=== PATIENT | male | born 1960 | race Asian ===

== ENCOUNTER 2016-06-23 02:41 | Emergency (ER) | payer OTHER ==
[~2016-06-23] VITALS: Ht 185.4 cm; Wt 77.1 kg
[~2016-06-23 02:41] MED LIST: HYDROCHLOROT50 MG PO; LISI20TA11 PO; LORTAB 5-325 MG1 TAB PO; METFORMIN ER1000 MG PO; METO25TA4 PO
[2016-06-23 04:06] LABS: PLATELET COUNT 101 K/uL (142-355)
[2016-06-23 04:14] LABS: POTASSIUM 2.7 mmol/L (3.6-5.2)
[2016-06-23 06:46] VITALS: BP 108/71; TEMP 97.8
== END 2016-06-23 06:54 | disposition home or self-care (01) ==
LOC: ED 02:41
DX: T78.3XXA Angioneurotic edema, initial encounter (principal); I10 Essential (primary) hypertension; R80.8 Other proteinuria
CPT/HCPCS: 36415; 80053; 81000; 85027; 96374; 96375; 99284; J1200; J3490

== ENCOUNTER 2016-06-25 10:34 | Emergency (ER) | payer BC ==
[~2016-06-25] VITALS: Ht 185.4 cm; Wt 77.1 kg
[2016-06-25] MEDS ORDERED: METF500T PO (10:51)
[2016-06-25] MEDS ORDERED: LABETALOL100 MG OR (10:52)
[2016-06-25 11:57] LABS: POTASSIUM 3.7 mmol/L (3.6-5.2)
[2016-06-25 12:07] LABS: PLATELET COUNT 76 K/uL (142-355)
[2016-06-25 13:00] VITALS: BP 138/85; TEMP 97.9
== END 2016-06-25 13:01 | disposition home or self-care (01) ==
LOC: ED 10:34
PROVIDERS: Emergency Medicine
DX: I10 Essential (primary) hypertension (principal); K85.90 Acute pancreatitis without necrosis or infection, unspecified; D69.6 Thrombocytopenia, unspecified
CPT/HCPCS: 36415; 80053; 83690; 85027; 99282

== ENCOUNTER 2017-04-19 08:50 | Outpatient (CLI) | payer BC ==
[~2017-04-19 08:50] MED LIST changes: +LABETALOL100 MG OR; +METF500T PO
== END 2017-04-19 10:00 | disposition home or self-care (01) ==
LOC: MRI 08:50
DX: Z85.528 Personal history of other malignant neoplasm of kidney (principal)

== ENCOUNTER 2020-05-29 08:52 | Outpatient (CLI) | payer OTHER | END 2020-05-29 22:10 | disposition home or self-care (01) | LOC: MRI 08:52 | PROVIDERS: ATTEND Specialist | DX: M54.9 Dorsalgia, unspecified (principal); M51.36 Other intervertebral disc degeneration, lumbar region ==

== ENCOUNTER 2021-02-28 08:55 | Outpatient (CLI) | payer OTHER | END 2021-02-28 19:16 | disposition home or self-care (01) | LOC: US 08:55 | PROVIDERS: ATTEND Nurse Practitioner Family | DX: D64.9 Anemia, unspecified (principal); E11.9 Type 2 diabetes mellitus without complications; K21.9 Gastro-esophageal reflux disease without esophagitis; Z85.528 Personal history of other malignant neoplasm of kidney; Z87.19 Personal history of other diseases of the digestive system; E78.5 Hyperlipidemia, unspecified; I10 Essential (primary) hypertension; Z90.5 Acquired absence of kidney; R14.0 Abdominal distension (gaseous); Z09 Encounter for follow-up examination after completed treatment for conditions other than malignant neoplasm; Z08 Encounter for follow-up examination after completed treatment for malignant neoplasm ==

== ENCOUNTER 2021-12-07 04:28 | Emergency (ER) | payer OTHER ==
[~2021-12-07] VITALS: Ht 185.4 cm; Wt 86.2 kg
[2021-12-07 04:49] VITALS: TEMP 97.8
[2021-12-07 05:05] LABS: PLATELET COUNT 251 K/uL (142-355)
[2021-12-07 05:08] LABS: POTASSIUM 4.2 mmol/L (3.6-5.2)
[2021-12-07 06:15] LABS: PARTIAL THROMBOPLASTIN TIME 26.3 SECONDS (24.5-33.6)
[2021-12-07 06:56] VITALS: BP 154/81
== END 2021-12-07 07:03 | disposition home or self-care (01) ==
LOC: ED 04:28
PROVIDERS: Emergency Medicine
DX: K86.1 Other chronic pancreatitis (principal); F10.10 Alcohol abuse, uncomplicated
CPT/HCPCS: 36415; 80053; 80307; 80320; 82150; 83690; 84484; 85027; 85610; 85730; 93005; 96374; 96375; 99284; J1885; J2175; J2405; J3490

== ENCOUNTER 2021-12-07 18:30 | Emergency (ER) | payer OTHER ==
[~2021-12-07] VITALS: Ht 185.4 cm; Wt 86.2 kg
[2021-12-07 19:38] LABS: PLATELET COUNT 216 K/uL (142-355)
[2021-12-07 19:46] LABS: POTASSIUM 3.5 mmol/L (3.6-5.2)
[2021-12-07 20:25] VITALS: BP 160/80; TEMP 98.1
== END 2021-12-07 20:25 | disposition home or self-care (01) ==
LOC: ED 18:30
PROVIDERS: Hospitalist
DX: K57.30 Diverticulosis of large intestine without perforation or abscess without bleeding (principal); G89.29 Other chronic pain; R11.2 Nausea with vomiting, unspecified
CPT/HCPCS: 36415; 80053; 80320; 83690; 85027; 96361; 96365; 96375; 99284; J0696; J2405; J3490

== ENCOUNTER 2022-10-25 14:30 | Emergency (ER) | payer OTHER ==
[~2022-10-25] VITALS: Ht 185.4 cm; Wt 90.7 kg
[2022-10-25 15:10] LABS: PLATELET COUNT 204 K/uL (142-355)
[2022-10-25 15:14] LABS: POTASSIUM 3.6 mmol/L (3.6-5.2); SODIUM 139 mmol/L (136-145)
[2022-10-30 12:16] VITALS: BP 145/75; TEMP 97.6
== END 2022-10-30 12:16 | disposition other institution (70) ==
LOC: ED 14:30
PROVIDERS: Emergency Medicine
DX: R45.851 Suicidal ideations (principal); R45.850 Homicidal ideations; F17.210 Nicotine dependence, cigarettes, uncomplicated; F10.90 Alcohol use, unspecified, uncomplicated
CPT/HCPCS: 36415; 80053; 80143; 80179; 80307; 80320; 81002; 85027; 93005; 96372; 99285; J1200; J1630; J2060